=== PATIENT | female | born 1935 | race Caucasian/White ===

== ENCOUNTER 2019-05-05 09:59 | Outpatient (CLI) | payer MEDICARE, SELFPAY ==
[2019-05-05] VITALS (7 sets, daily range): BP systolic 118–164; BP diastolic 70–81; PULSE 67–89; RESP 16–18; TEMP 35.9; O2SAT 98–100
--- NOTE | 2019-05-05 10:01 | DI.RAD.S_ITS ---
PROCEDURE: PAIN C/T INTERLAMINAR INJECT INDICATIONS: SPINAL STENOSIS FINDINGS: Fluoroscopic spot filming was performed to verify placement of spinal needles at the C7-T1 level(s), as labeled on the films. Appropriate location(s) of the needle tip(s) was confirmed by injection of iodinated contrast. Dictated by: Javi Caicedo M.D. on 05/06/2019 at 8:44 Approved by: Javi Caicedo M.D. on 05/06/2019 at 8:44
--- NOTE | 2019-05-05 10:41 | PC.NURSE ---
NOTIFIED OF LOW TEMP
[2019-05-05] MEDS: MIDAZOLAM 5 MG/5 ML VIAL IV (11:10)
[2019-05-05] MEDS: DEXAMETHASONE 10 MG/ML VIAL 30 MG INJ (11:21)
[2019-05-05] MEDS: IOPAMIDOL 15 ML VIAL 3 ML INJ (11:21)
[2019-05-05] MEDS: LIDOCAINE 1% 20 ML INJ 5 ML INJ (11:21)
--- NOTE | 2019-05-05 11:22 | PC.NURSE ---
pt tolerated procedure well. She was able to stay still with only 1mg versed on board and positioning. pt able to get off table with 2 person minimal assist. Transferred pt via wheelchair to pre procedure room for continued monitoring with Mary PAZ.
--- NOTE | 2019-05-05 11:28 | P.PCN_ITS ---
Procedures Date/Time Date of procedure: 05/05/19 Time of procedure: 11:27 General Procedure description: PREOP DIAGNOSIS 1. CERVICAL STENOSIS, 2. CERVICAL HNP WITH UPPER EXTREMITY RADICULAR FEATURES, POST OP DIAGNOSIS 1. CERVICAL STENOSIS, 2. CERVICAL HNP WITH UPPER EXTREMITY RADICULAR FEATURES, PROCEDURES 1. FLUORSCOPICALLY GUIDED CONTRAST CONTROLLED INTERLAMINAR EPIDURAL STEROID INJECTION - C7/T1 TL MILAGRO, PHYSICIAN: Osmin Torrez DO INDICATIONS: Zoey is referred by Dr. Matson for treatment of Cervical Stenosis. FINDINGS Cervical Stenosis due to disc deterioration and nerve root irritation and nerve root irritation DESCRIPTION OF PROCEDURE Fluoroscopically guided, contrast-controlled C7/T1 translaminar epidural steroid injection with conscious sedation. Following review of allergy and review of potential side effects and complications, including, but not necessarily limited to, infection, allergic reaction, local tissue breakdown, temporary as well as permanent nerve injury, stroke, paralysis, and possible , the patient indicated that patient understood and agreed to proceed. An informed consent document was signed by the patient, witnessed by a nurse, and placed in the patient's chart. Additionally, other treatment options including modalities, medications, and physical therapy were reviewed with the patient. After review of previous anaesthesic history and IV conscious sedation the pa tient was deemed safe to proceed with todays procedure with IV conscious sedation as ASA class II designation. Safety time-out was performed to confirm patient ID, procedure to be performed and site of procedure. IV sedation was accomplished with a combination of 1mg of Versed administered by the RN after DO order, titrated to patient comfort during the course of the procedure while the patient remained responsive to all verbal commands. In the prone position, following sterile prep and drape of the cervical region, the C7/T1 translaminar space was identified fluoroscopically. The skin was an esthetized via a 25-gauge 1.5-inch needle with 1% lidocaine solution. At this point, a 25-gauge, 2.5-inch short bevel spinal needle was atraumatically introduced and advanced under fluoroscopic guidance into epidural space at the C7/T1 translaminar space. Depth was confirmed on lateral view. Radiological data, including multiple fluoroscopic views of the cervical spine, reveal a spinal needle at the C7/T1 translaminar space. Lateral views then show placement of the needle in the epidural space. Subsequent views show contrast material flowing superiorly and inferiorly in the epidural space. DSA fluoroscopy with live contrast injection, once again, confirmed no vascular or intrathecal uptake. At this point, using loss of resistance technique with saline and air, the epidural space was entered. Following negative aspiration, injection of approximately 1.5 cc of Isovue-200 with live fluoroscopy in the AP view confirmed epidural flow in the epidural space without vascular or intrathecal uptake observed. Subsequently, a test dose of 1 cc of 1% lidocaine solution was injected and patient was observed for two minutes without signs or symptoms of complications, including abdominal pain, shortness of breath, bilateral upper or lower extremity weakness, nausea and vomiting, prior to steroid injection. At this point, 3cc or 30mg of dexamethasone was then injected without incident. The patient tolerated the procedure well without signs or symptoms of complications prior to transfer to the recovery area for further monitoring The patient was then transferred to the recovery area where they were observed for an appropriate period of time after the injection. The patient reported a VAS score of 6 prior to the procedure and a post-procedure VAS of 0. Total Fluoroscopy Time: 23.2 seconds Total Conscious Sedation Time: 24min POST OP INSTRUCTIONS The patient was provided a Pain Log to continue to record their response to the target-specific procedure prior to follow-up visit with the referring provider. Additionally, specific post-injection care instructions and a contact number to our office were provided if concerns arise regarding possible complications as sociated with the procedure are suspected. Osmin Torrez, DO Complications: none
--- NOTE | 2019-05-05 11:39 | PC.NURSE ---
ACCEPTED CARE OF PT IN POST PROC AREA IN STABLE CONDITION
== END 2019-05-05 12:51 | disposition home or self-care (01) ==
LOC: RAD 10:01
PROVIDERS: PCP Family Medicine; Visit Provider Physical Medicine & Rehabilitation
DX: M48.02 Spinal stenosis, cervical region (principal); M50.13 Cervical disc disorder with radiculopathy, cervicothoracic region
CPT/HCPCS: 62321; 99152; J1100; J2250

== ENCOUNTER → 2019-12-12 12:35 | Outpatient (CLI) | payer MEDICARE, SELFPAY ==
--- NOTE | 2019-12-12 12:44 | DI.MRI.S_ITS ---
PROCEDURE: MR CERVICAL SPINE WO CON INDICATIONS: Neck pain recent falls TECHNIQUE: Noncontrast sagittal T1 spin echo and T2 fast spin echo, sagittal STIR, foraminal oblique sagittal T2 fast spin echo, and axial gradient echo or T2 fast spin echo through the cervical spine. COMPARISON: [facility], MR, C-SPINE WITHOUT CONTRAST, 12/26/2016, 13:49. FINDINGS: Image quality: Significant motion is present throughout the examination, limiting areas of fine detail evaluation. Alignment and Curvature: Cervical kyphosis is present. There is grade 1 anterolisthesis of C2 on C3, trace anterolisthesis of C3 on C4, trace retrolisthesis of C4 on C5, C5 on C6, C6 on C7, C7 on T1, unchanged. Bone Marrow: Marrow demonstrates normal overall signal. Spinal Cord: Visualized spinal cord has normal size and signal. No cerebellar tonsillar herniation. Paraspinous Soft Tissues: No paravertebral masses. Prevertebral soft tissues are normal in thickness. Discs: Multilevel moderate to severe disc desiccation is present. C2-C3: Mild disc bulge without spinal stenosis. Moderate to severe left foraminal narrowing with uncovertebral hypertrophy is present. No interval progression. C3-C4: Mild disc bulge with mild spinal stenosis. Moderate left and mild right foraminal narrowing with uncovertebral hypertrophy. No interval progression. C4-C5: Mild disc bulge with mild spinal stenosis. Moderate left and mild right foraminal narrowing with uncovertebral hypertrophy. No interval progression. C5-C6: Mild disc bulge with superimposed posterior central/left paracentral protrusion. Protrusion is more prominent when compared to prior exam. There is overall severe spinal stenosis with indentation anterior thecal sac as well as anterior cord. Moderate bilateral foraminal narrowing and uncovertebral hypertrophy, subtly progressive on the right compared to prior exam. C6-C7: Mild disc bulge with moderate spinal stenosis. Severe bilateral foraminal narrowing with mild interval progression on the right. Uncovertebral hypertrophy is present. C7-T1: No disc bulge or spinal stenosis. Previous left protrusion is no longer visualized. Foramina are poorly evaluated secondary to motion and stenosis cannot be excluded. IMPRESSION: 1. Multilevel degenerative changes of there is interval progression as noted above. 2. Previous protrusion C7-T1 is no longer visualized. 3. Multilevel spinal stenosis most severe at C5-6 secondary to protrusion. 4. Multilevel foraminal narrowing most severe at C6-7 secondary to uncovertebral arthropathy. Dictated by: Maritza Harrington M.D. on 12/12/2019 at 16:57 Approved by: Maritza Harrington M.D. on 12/12/2019 at 17:04
--- NOTE | 2019-12-12 12:44 | DI.RAD.S_ITS ---
PROCEDURE: XR CERVICAL SPINE 4V OR 5V INDICATIONS: Neck pain recent falls TECHNIQUE: 5 views of the cervical spine acquired. COMPARISON: None. FINDINGS: Bones: No fractures or dislocations to the T1 level. Oblique images demonstrate only mild bony foraminal stenoses bilaterally symmetric from C3-4 through C5-6. Degenerative disc disease with disc height reduction is near severe at C4-5 and C5-6 and to a slightly lesser degree at C6-7. There is anterolisthesis grade 1 of C2 on C3 likely due to facet osteoarthritis combining with disc height reduction and ligamentous laxity. Soft tissues: No prevertebral soft tissue swelling. IMPRESSION: Moderately severe degenerative disc disease through the middle third of the cervical spine, and there is ligamentous laxity allowing rate 1 anterolisthesis of C2 on C3. No trauma found. Foraminal stenosis is mild to moderate in severity, also over the middle third of the cervical spine as noted. Dictated by: Rufus Rojo M.D. on 12/12/2019 at 14:30 Approved by: Rufus Rojo M.D. on 12/12/2019 at 14:33
== END ==
PROVIDERS: PCP Family Medicine; Visit Provider Physical Medicine & Rehabilitation
DX: M47.812 Spondylosis without myelopathy or radiculopathy, cervical region (principal); M50.222 Other cervical disc displacement at C5-C6 level; M50.321 Other cervical disc degeneration at C4-C5 level; M48.02 Spinal stenosis, cervical region
CPT/HCPCS: 72050; 72141

== ENCOUNTER 2020-05-10 08:46 | Outpatient (CLI) | payer MEDICARE, SELFPAY ==
[2020-05-10] VITALS (18 sets, daily range): BP systolic 95–218; BP diastolic 48–99; PULSE 55–88; RESP 8–19; TEMP 36.1; O2SAT 82–100
--- NOTE | 2020-05-10 08:48 | DI.RAD.S_ITS ---
PROCEDURE: PAIN C/T INTERLAMINAR INJECT INDICATIONS: SPINAL STENOSIS FINDINGS: Fluoroscopic spot filming was performed to verify placement of spinal needles at the C7-T1 level(s), as labeled on the films. Appropriate location(s) of the needle tip(s) was confirmed by injection of iodinated contrast. IMPRESSION: Successful needle tip localization at the interlaminar region of C7-T1 for epidural steroid injection. Dictated by: Rufus Rojo M.D. on 05/10/2020 at 12:07 Approved by: Rufus Rojo M.D. on 05/10/2020 at 12:08
[2020-05-10] MEDS: MIDAZOLAM 5 MG/5 ML VIAL IV (10:42)
--- NOTE | 2020-05-10 10:49 | PC.NURSE ---
02 AND CAPNOGRAPHY NOT WORKING ON MONITOR AT THIS TIME. dR KRAMER AWARE.
[2020-05-10] MEDS: LIDOCAINE 1% 20 ML 5 ML INJ (10:53)
[2020-05-10] MEDS: IOPAMIDOL 15 ML VIAL 3 ML INJ (10:53)
[2020-05-10] MEDS: DEXAMETHASONE 10 MG/ML VIAL 20 MG INJ (10:53)
[2020-05-10] MEDS: FLUMAZENIL 0.5 MG/5 ML MDV 0.2 MG IV (11:00)
--- NOTE | 2020-05-10 11:26 | P.PCN_ITS ---
Procedures Date/Time Date of procedure: 05/10/20 Time of procedure: 11:26 General Procedure description: PREOP DIAGNOSIS 1. CERVICAL STENOSIS, 2. CERVICAL HNP WITH UPPER EXTREMITY RADICULAR FEATURES, POST OP DIAGNOSIS 1. CERVICAL STENOSIS, 2. CERVICAL HNP WITH UPPER EXTREMITY RADICULAR FEATURES, PROCEDURES 1. FLUORSCOPICALLY GUIDED CONTRAST CONTROLLED INTERLAMINAR EPIDURAL STEROID INJECTION - C7/T1 TL MILAGRO, PHYSICIAN: Osmin Torrez DO INDICATIONS: Zoey is referred by for treatment of Cervical Stenosis. FINDINGS Cervical Stenosis due to disc deterioration and nerve root irritation and nerve root irritation DESCRIPTION OF PROCEDURE Fluoroscopically guided, contrast-controlled C7/T1 translaminar epidural steroid injection with conscious sedation. Following review of allergy and review of potential side effects and complications, including, but not necessarily limited to, infection, allergic reaction, local tissue breakdown, temporary as well as permanent nerve injury, stroke, paralysis, and possible , the patient indicated that patient understood and agreed to proceed. An informed consent document was signed by the patient, witnessed by a nurse, and placed in the patient's chart. Additionally, other treatment options including modalities, medications, and physical therapy were reviewed with the patient. After review of previous anaesthesic history and IV conscious sedation the pat ient was deemed safe to proceed with todays procedure with IV conscious sedation as ASA class II designation. Safety time-out was performed to confirm patient ID, procedure to be performed and site of procedure. IV sedation was accomplished with a combination of 1mg of Versed administered by the RN after DO order, titrated to patient comfort during the course of the procedure while the patient remained responsive to all verbal commands. In the prone position, following sterile prep and drape of the cervical region, the C7/T1 translaminar space was identified fluoroscopically. The skin was ane sthetized via a 25-gauge 1.5-inch needle with 1% lidocaine solution. At this point, a 25-gauge, 2.5-inch short bevel spinal needle was atraumatically introduced and advanced under fluoroscopic guidance into epidural space at the C7/T1 translaminar space. Depth was confirmed on lateral view. Radiological data, including multiple fluoroscopic views of the cervical spine, reveal a spinal needle at the C7/T1 translaminar space. Lateral views then show placement of the needle in the epidural space. Subsequent views show contrast material flowing superiorly and inferiorly in the epidural space. DSA fluoroscopy with live contrast injection, once again, confirmed no vascular or intrathecal uptake. At this point, using loss of resistance technique with saline and air, the epidural space was entered. Following negative aspiration, injection of approximately 1.5 cc of Isovue-200 with live fluoroscopy in the AP view confirmed epidural flow in the epidural space without vascular or intrathecal uptake observed. Subsequently, a test dose of 1 cc of 1% lidocaine solution was injected and patient was observed for two minutes without signs or symptoms of complications, including abdominal pain, shortness of breath, bilateral upper or lower extremity weakness, nausea and vomiting, prior to steroid injection. At this point, 2cc or 20mg of dexamethasone was then injected without incident. The patient tolerated the procedure well without signs or symptoms of complications prior to transfer to the recovery area for further monitoring. She remained slow to clear the Versed and thus this was reversed and IV fluids instituted to assist in her clearing of the Versed and associated transient hypotension. She was transported to the recovery area with full movement, responsive and pain free. The patient was then transferred to the recovery area where they were observed for an extended period of time after the injection. The patient reported a VAS score of 6 prior to the procedure and a post-procedure VAS of 0. Total Fluoroscopy Time: 17 seconds Total Conscious Sedation Time: 24min POST OP INSTRUCTIONS The patient was provided a Pain Log to continue to record their response to the target-specific procedure prior to follow-up visit with the referring provider. Additionally, specific post-injection care instructions and a contact number to our office were provided if concerns arise regarding possible complications associated with the procedure are suspected. Osmin Torrez DO Complications: none
--- NOTE | 2020-05-10 12:25 | PC.NURSE ---
Accepted care of pt from procedure room. Recovery in post procedural room- first post set of vitals 130/58, HR 56, 84% on 2LNC. RR 8. Son at bedside at 11:20 Dr Torrez at bedside 12:05 to speak with patient and family. SBP 200's. MD aware. Son states this am prior to arrival at the hospital, pt's SBP was 200. Newly changed BP meds per son. Recommended to contact primary care doc in House to reassess dose. Pt A&Ox3 at this time, 12:27. Conversing, denies pain. Tolerating sips of water. States she is ready to leave. Will monitor patient until 2 hrs post reversal agent per JACKSON Waldrop.
--- NOTE | 2020-05-10 12:54 | PC.NURSE ---
PT A&O TO PERSON, PLACE AND TIME BUT IMPULSIVE ON THE GURNEY. I AM PASSING RN CARE OFF TO FRED Wright RN FOR FURTHER 1 ON 1 CARE IN POST PROC AREA. ALL VSS AT THIS TIME. HAVE UPDATED PT'S SON ON SITUATION.
--- NOTE | 2020-05-10 12:55 | PC.NURSE ---
POST DATE NOTE TO 05/10/2020 AT 1100: UPON COMPLETION OF PROCEDURE, PT ABLE TO NOD HEAD WHEN SPOKEN TO LOUDLY BUT UNABLE TO FOLLOW SIMPLE COMMANDS. AT THAT TIME BP ALSO DECREASED TO 95/53, ALL OTHER VITAL SIGNS AT BASELINE FOR PT AND STEADY, ECG CONTINUED TO READ SINUS STEPHEN BEFORE. DR KRAMER ORDERED VERSED REVERSAL WITH 0.2MG FLUMAZONIL IV. THAT WAS PREPARED AND GIVEN BY THIS RN. WE THEN SAFELY LOG ROLLED HER ONTO [place] WITH ME HOLDING C-SPINE. UPON ROLLING, PT NOTED TO OPEN EYES AND ASK WHAT ARE YOU DOING? NORMAL SALINE DRIP STARTED PER DR KRAMER VERBAL ORDER AND PT PUT IN TRENDELENBURG POSITION RT DECREASED BP. BY 1106 BP NOTED TO HAVE COME UP TO 124/48. PT NOTED TO BE MORE ALERT AND ABLE TO FOLLOW SIMPLE COMMANDS AND STARTED TO ASK APPROPRIATE QUESTIONS. BY THAT TIME PT WAS NOTED TO BE ALERT TO PERSON, PLACE AND SITUATION. I CONTINUED TO MONITOR PT WITH DR KRAMER AT BEDSIDE FOR NEXT 10 MINUTES. AT APPROX 1108 PT TAKEN OUT OF TRENDELEN[place]G AND HEAD RAISED 30 DEGREES PT WAS ATTEMPTING TO RAISE HEAD BY HERSELF AND SEEMED TO BECOME AGITATED RT POSITION. ONCE PT WAS REPOSITIONED SHE STOPPED THOSE MOVEMENT. AT APPROX 115 WITH ALL VITAL SIGNS BACK TO NORMAL LEVELS, RN CARE WAS PASSED ON TO PEPE WILKINS IN POST PROC AREA.
== END 2020-05-10 13:18 | disposition home or self-care (01) ==
PROVIDERS: PCP Family Medicine; Referring Provider Physical Medicine & Rehabilitation; Visit Provider Physical Medicine & Rehabilitation
DX: M48.02 Spinal stenosis, cervical region (principal); M50.13 Cervical disc disorder with radiculopathy, cervicothoracic region
CPT/HCPCS: 62321; 99152; J1100; J2250; J3010